=== PATIENT | male | born 1960 | race Caucasian/White ===

== ENCOUNTER → 2016-08-11 | Outpatient (CLI) | payer BC | END | disposition home or self-care (01) | LOC: GMAB 10:36 | PROVIDERS: ATTEND Family Medicine | DX: R59.9 Enlarged lymph nodes, unspecified (principal) ==

== ENCOUNTER → 2016-08-12 | Outpatient (CLI) | payer BC ==
--- NOTE | 2016-08-12 10:43 | CT ---
EXAM DESCRIPTION: CT ABDOMEN AND PELVIS WITHOUT AND WITH CONTRAST CLINICAL HISTORY: GROSS HEMATURIA COMPARISON: 14 October 2014 TECHNIQUE: CT of the abdomen and pelvis are performed prior to and during IV bolus administration of 100 mL of IV contrast. FINDINGS: The lung bases are clear of infiltrate. Liver is normal in size and parenchymal appearance. Spleen, pancreas, and kidneys are unremarkable. Pathologic lymphadenopathy is noted in the small bowel mesenteries and notably in the right inguinal region. There is a 2.1 cm right inguinal node. There also several small soft tissue densities in retroperitoneal fat lateral to the right iliopsoas likely representing pathologic lymph nodes less than a cm in size. There is a periaortic node that measures about 9 mm and is also abnormal. IMPRESSION: 1. Pathologic inguinal, a mesenteric, and retroperitoneal lymphadenopathy. I suspect lymphoma or similar. Excisional biopsy of the right inguinal node may be the best choice diagnostically speaking. I have spoken to Dr. Teran about the findings and recommendations. Electronically signed by: Jonatan Brasher MD 08/12/2016 10:41
== END | disposition home or self-care (01) ==
LOC: CT 10:04
PROVIDERS: ATTEND Family Medicine
DX: R31.0 Gross hematuria (principal)

== ENCOUNTER 2016-08-13 05:56 | Day surgery (SDC) | payer BC ==
[2016-08-13] MEDS ORDERED: SODIUM CHLORIDE 0.9% 50 ML VIAL ONE (07:00)
[2016-08-13] MEDS ORDERED: LIDOCAINE 1% 10 ML VIAL INJ ONE (07:00)
[2016-08-13] MEDS ORDERED: PROPOFOL 200 MG/20 ML VIAL IV ONE (07:00)
[2016-08-13] MEDS ORDERED: MIDAZOLAM INJ 5 MG/5 ML VIAL ONE ×2 (08:14→10:31)
[2016-08-13] MEDS ORDERED: LIDOCAINE 1% 50 ML VIAL INJ ONE (10:26)
[2016-08-13] MEDS ORDERED: SODIUM BICARBONATE VIAL 50 MEQ/50 ML VIAL ONE (10:26)
[2016-08-13] MEDS ORDERED: fentaNYL CITRATE INJ 50 MCG/ML AMP ONE (10:31)
[2016-08-13] MEDS ORDERED: LACTATED RINGERS 1,000 ML ONE (10:37)
[2016-08-13 12:12] VITALS: BP 134/82; TEMP 97.9; O2SAT 97
--- NOTE | 2016-08-13 14:09 | OP ---
DATE OF PROCEDURE: 08/13/16 PREOPERATIVE DIAGNOSIS: 1. Diffuse lymphadenopathy. POSTOPERATIVE DIAGNOSIS: 1. Diffuse lymphadenopathy. PROCEDURE: 1. Excision, right inguinal lymph node. SURGEON: Sai Ordonez MD. FRETTED INSTRUMENT INSPECTOR: None. ANESTHESIA: Local infiltration of 1% lidocaine with bicarb and IV sedation by Anesthesia. INDICATION: The patient is a 56-year-old male who was in his normal state of health when he noted a mass in his left groin. He saw his primary care physician, Dr. Teran, who felt this was lymphadenopathy and treated with antibiotics. It did not resolve. CT scan revealed intraabdominal lymphadenopathy along with this pathological node in the right groin. He was brought to the Surgical Suite today for excision of the right inguinal lymph node for diagnostic tissue. This is all after the risks, benefits and alternatives to the procedure were discussed and accepted with the patient. FINDINGS: The lymph node was identified and approximately 1.5 cm in greatest diameter. It was sent intact. PROCEDURE: After the patient was brought to the Surgical Suite and placed in supine position, he was sedated somewhat. His right groin had been marked earlier. He was then prepped and draped in the usual sterile manner. A surgical time-out was then taken. At this point, an oblique incision was fashioned just below the mass in the right groin, first with the sharp knife and then dissection was carried down through the skin and subcutaneous tissue using electrocautery and blunt dissection. The mass was identified and then using tedious blunt dissection, it was teased away from the surrounding tissue using blunt dissection and electrocautery. The specimen was then removed with the deepest tissue holding it clamped and sharply divided and then tied with 3- 0 Vicryl ligature. When this was done, the wound was irrigated with local anesthetic. Hemostasis was noted to be adequate. The wound was then closed in layers with the subcutaneous tissue reapproximated with interrupted 3-0 Vicryl sutures and the skin edges approximated with 4-0 Prolene vertical mattress sutures. Sterile pressure dressing was applied. The patient tolerated the procedure well and was awakened and taken back to the Ambulatory Unit in stable condition. Estimated blood loss was less than 25 mL. All sponge, needle and instrument counts were correct. #[id number] [facility]
== END 2016-08-13 12:15 | disposition home or self-care (01) ==
LOC: AMB 05:56
PROVIDERS: ATTEND Surgery
DX: R59.0 Localized enlarged lymph nodes (principal); J45.909 Unspecified asthma, uncomplicated; Z79.899 Other long term (current) drug therapy

== ENCOUNTER → 2016-08-25 | Outpatient (CLI) | payer BC ==
--- NOTE | 2016-08-25 12:05 | RAD ---
EXAM DESCRIPTION: XR ABDOMEN 2 VIEWS SUPINE ERECT CLINICAL HISTORY: RLQ PAIN COMPARISON: August 12, 2016. TECHNIQUE: KUB FINDINGS: There is an unremarkable bowel gas pattern. There is no mass or calculus observed. IMPRESSION: Normal. Electronically signed by: Huber Wilkerson MD 08/25/2016 11:19 AM MANAGER TRAFFIC
== END | disposition home or self-care (01) ==
LOC: RAD 10:06
PROVIDERS: ATTEND Surgery
DX: R10.13 Epigastric pain (principal)

== ENCOUNTER → 2016-11-17 | Outpatient (CLI) | payer BC ==
--- NOTE | 2016-11-17 11:54 | CT ---
EXAM DESCRIPTION: Abdomen/Pelvis w/wo Contrast CLINICAL HISTORY: R59.0 COMPARISON: August 12, 2016 TECHNIQUE: CT of the abdomen and Pelvis was performed with and without IV contrast. This exam was performed according to our departmental dose-optimization program, which includes automated exposure control, adjustment of the mA and/or kV according to patient size and/or use of iterative reconstruction technique. FINDINGS: Pre-IV contrast images show no lung base abnormality. There is no calcified gallstone or urinary tract calculus. Following IV contrast demonstration, no mesenteric or retroperitoneal adenopathy is seen. There are a few subthreshold mesenteric lymph nodes which do not meet size criteria for adenopathy There is a 7 mm short axis diameter left para-aortic lymph node just inferior to the level of the left renal artery which is unchanged from July, and also appears stable from an older exam performed in September,. This does not meet CT size criteria for adenopathy. There are a few lymph nodes in the retroperitoneal fat along the lateral margin of the right iliopsoas muscle which are stable from September, and also do not meet size criteria for adenopathy. There is an enlarged 1.6 cm short axis diameter right inguinal lymph node with central low density suggestive of necrosis. There is a slightly enlarged similar appearing 1.1 cm short axis diameter left inguinal lymph node, only partially visualized on the final image of this exam. No additional inguinal or other pelvic adenopathy is seen. The spleen is not enlarged. There is no focal liver lesion. The pancreas, adrenals and kidneys are unremarkable. No ascites or pneumoperitoneum. No small bowel wall thickening or dilated small bowel loops. No bladder wall thickening. The prostate is not enlarged. Colonic diverticulosis is noted without diverticulitis. No suspicious bone lesion. IMPRESSION: Bilateral inguinal adenopathy, worse on the right side and new or worse from July,. Findings are nonspecific and could be of infectious or neoplastic origin. If not performed already, biopsy particularly of the right inguinal lymph node may be helpful. Subthreshold mesenteric and retroperitoneal lymph nodes elsewhere as detailed above which do not meet CT size criteria for adenopathy and are stable from September,. Colonic diverticulosis without diverticulitis. Electronically signed by: Aung Oglesby MD 11/17/2016 11:54 AM CDT Workstation: [id number]
== END | disposition home or self-care (01) ==
LOC: CT 09:33
PROVIDERS: ATTEND Surgery
DX: R59.0 Localized enlarged lymph nodes (principal)

== ENCOUNTER → 2017-01-14 | Outpatient (CLI) | payer BC ==
--- NOTE | 2017-01-14 13:47 | CT ---
EXAM DESCRIPTION: Abdomen/Pelvis w/wo Contrast CLINICAL HISTORY: LLQ PAIN COMPARISON: None. TECHNIQUE: Spiral-axial scans at 5.0 mm intervals through the abdomen and pelvis before and after standard dose nonionic IV contrast. Coronal and sagittal 2.0 mm reconstructions. No delayed scans. No adverse reactions. Total Exam CTD 33.37 mGy. FINDINGS: Lung bases and pleura: Minimal parenchymal scarring in the lung bases no effusion. Liver, Stomach, Spleen, Adrenal Glands: Persistent region of nonenhancement in the posterior lateral inferior liver subcapsular with no change. No fluid around the liver. Small sliding hiatal hernia the stomach not distended. Pancreas, Gallbladder, Ducts: Slight dilation of the proximal common bile duct. Gallbladder visualized. Pancreas unremarkable. Kidneys and Ureters: Negative. Mesentery: No stranding, no free fluid or free air. Small lymph nodes in the lower abdomen and pelvis with short axis less than 10 mm, which were also seen on the prior study. Aorta: Normal caliber with minimal atherosclerotic calcification. 17 x 10 x 8 mm lymph node at the level of the L2-3 vertebra is stable since the prior study. Small Bowel: Small mesenteric lymph nodes short axis less than 10 mm. No significant distention or air-fluid levels. Terminal Ileum/Cecum: Normal caliber. Small lymph nodes. Normal caliber of the appendix. No fatty stranding or fascial thickening. Colon: Diffuse fecal material. Sigmoid diverticula with no signs of complications. Minimal redundancy of the sigmoid. Pelvic Organs: Prostate gland is abutting the base of the urinary bladder. Stable central calcifications. No radiodense stones in the urinary bladder. No free fluid. Small lymph nodes stable. Spine and Bony Pelvis: Minimal spondylosis of the upper levels of the lumbar spine. No destructive lesions. Mild broad thoracolumbar dextroscoliosis. Abdominal Wall/Back Soft Tissues: Reactive appearing lymph node in the right inguinal region measures 12 x 9 mm compared to 17 x 18 mm on the prior study. Hydrocele right scrotum is slightly larger. No inguinal hernia. Small nonreactive nodes left inguinal region. Abdominal wall otherwise unremarkable. IMPRESSION: 1. Reactive right inguinal lymph node is smaller than on the prior study. No inguinal hernia bilaterally or new bilateral inguinal lymph nodes. 2. Mesenteric and peritoneal lymph nodes in the abdomen and pelvis and also periaortic space are stable since the prior study. No bowel obstruction or significant mucosal thickening. No ascites or free fluid in the pelvis. 3. Stable, geographic region of nonenhancement in the lateral inferior subcapsular liver since the prior study. 4. Sigmoid diverticulosis and redundancy but no diverticulitis. Small sliding gastric hiatal hernia. These findings were reviewed in person with Dr. Garcia at approximately 1230 hours on January 14, 2017. Electronically signed by: Adal Boo MD 01/14/2017 1:45 PM CDT Workstation: [id number]
== END | disposition home or self-care (01) ==
LOC: CT 10:22
PROVIDERS: ATTEND Surgery
DX: R10.814 Left lower quadrant abdominal tenderness (principal)

== ENCOUNTER → 2017-04-25 | Outpatient (CLI) | payer BC | END | disposition home or self-care (01) | LOC: GMAB 10:42 | PROVIDERS: ATTEND Family Medicine | DX: Z00.01 Encounter for general adult medical examination with abnormal findings (principal) ==

== ENCOUNTER → 2018-04-27 | Outpatient (CLI) | payer BC | LOC: GMAE 11:06 | PROVIDERS: ATTEND Family Medicine | DX: Z00.01 Encounter for general adult medical examination with abnormal findings (principal) ==

== ENCOUNTER → 2019-04-30 | Outpatient (CLI) | payer BC | LOC: GMAE 10:49 | PROVIDERS: ATTEND Family Medicine | DX: Z00.00 Encounter for general adult medical examination without abnormal findings (principal); Z12.5 Encounter for screening for malignant neoplasm of prostate ==

== ENCOUNTER → 2019-11-29 | Outpatient (CLI) | payer BC | LOC: GMAE 10:52 | PROVIDERS: ATTEND Family Medicine | DX: R10.9 Unspecified abdominal pain (principal) ==

== ENCOUNTER → 2020-05-07 | Outpatient (CLI) | payer BC | LOC: GMAE 10:58 | PROVIDERS: ATTEND Family Medicine | DX: Z00.00 Encounter for general adult medical examination without abnormal findings (principal) ==